=== PATIENT | male | born 1945 | race Caucasian/White ===

== ENCOUNTER → 2017-10-29 | Day surgery (SDC) | payer OTHER ==
[~2017-10-29] MED LIST: DEXAMETHASONE SOD PHOS 4 MG/ML VIAL ONE; EPINEPHrine HCL (1:1000) 1 MG/ML VIAL ONE; LACTATED RINGER'S 1000 ML INJ 1,000 ML ONE; MIDAZOLAM HCL 2 MG/2 ML VIAL ONE; MOXIFLOXACIN 0.5% OPHT SOLN 3 ML BTL ONE; ONDANSETRON HCL 4 MG/2 ML VIAL IV PUSH ONE; PHENYLEPHRINE HCL 10% OPTH SOLN 5 ML BTL ONE; PROPOFOL 200 MG/20 ML AMP IV ONE; SODIUM CHLORIDE 0.9% INJ 10 ML ONE; TETRACAINE 0.5% OPTH SOLN 4 ML BTL ONE; TOBRAMYCIN/DEXAMETHASONE OPTH OINT 3.5 GM TUBE ONE; TRIAMCINOLONE ACETONIDE 40 MG/ML VIAL ONE; ceFAZolin INJ 1,000 MG VIAL ONE; prednisoLONE ACETATE 1% OPHT SUSP 5 ML BTL ONE
--- NOTE | 2017-11-05 21:11 | MP ---
cc: Kel Mascorro MD DATE OF OPERATION: 10/29/2017 PREOPERATIVE DIAGNOSIS: Full thickness macular hole, right eye POSTOPERATIVE DIAGNOSIS: Full thickness macular hole, right eye. PROCEDURE PERFORMED: Pars ____, removal of internal limiting membrane, air fluid exchange, insertion of 18% SF6 gas, right eye. SURGEON: Kel Mascorro MD ANESTHESIA: General. ESTIMATED BLOOD LOSS: Less than 1 mL COMPLICATIONS: None. INDICATIONS FOR PROCEDURE: This is a delightful patient who presented with significant vision loss on his right eye. The patient reports visual loss for over 6 months and he elected for surgical correction, understanding risks, benefits, and alternatives. The patient also understands the likelihood of visual distortion remaining given the chronicity of his macular hole. DESCRIPTION OF PROCEDURE: After informed consent obtained, the patient brought to the operating room. General anesthesia was established. The right eye, prepped and draped in sterile fashion with Betadine in the conjunctival fornix. A 3-port pars ____ was established with a self-retaining infusion cannula. Core vitrectomy was carried out and posterior vitreous traction was relieved. The ILM was highlighted with ICG and removed with ILM forceps. Scleral depressed examination revealed no retinal holes, tears or detachments in the periphery. Air fluid exchange was carried out and macular hole noted to close under direct visualization. 18% SF6 gas was instilled. The trocars were removed and sclerotomies closed. Subconjunctival injection of Ancef and betamethasone were given. The eye was patched with tobramycin ointment. The patient was brought to recovery room in stable condition and continue followup with [facility] for his postoperative care. Kel Mascorro MD KEW/rt , 08:46 PM , 09:10 PM
== END | disposition home or self-care (01) ==
LOC: ESDC 06:06
PROVIDERS: ATTEND Ophthalmology
DX: H35.341 Macular cyst, hole, or pseudohole, right eye (principal)
CPT/HCPCS: 00145; 67042; J0171; J0690; J1100; J2250; J2405; J3010; J7120; J3301